=== PATIENT | male | born 1960 ===

== ENCOUNTER 2020-03-13 11:42 | Emergency (ER) | payer MEDICAID ==
[~2020-03-13] VITALS: Ht 172.7 cm; Wt 72.6 kg
[2020-03-13 11:44] VITALS: BP 119/88
== END 2020-03-13 13:01 | disposition home or self-care (01) ==
LOC: ED 12:06
DX: L03.113 Cellulitis of right upper limb (principal); F17.200 Nicotine dependence, unspecified, uncomplicated
CPT/HCPCS: 99283

== ENCOUNTER → 2021-01-13 | Outpatient (CLI) | payer MEDICAID ==
[~2021-01-13] MED LIST: ACET-2065 PO; CHOL10003 PO; THIA100T27 PO
== END | disposition home or self-care (01) ==
LOC: STAR 14:39
PROVIDERS: ATTEND Urology
DX: Z01.818 Encounter for other preprocedural examination (principal); N20.0 Calculus of kidney; R94.31 Abnormal electrocardiogram [ECG] [EKG]
CPT/HCPCS: 93005

== ENCOUNTER 2021-01-17 10:33 | Day surgery (SDC) | payer MEDICAID ==
[~2021-01-17] VITALS: Ht 172.7 cm; Wt 68.2 kg
[2021-01-17 11:18] VITALS: BP 107/69
== END 2021-01-17 14:35 | disposition home or self-care (01) ==
LOC: OUT 10:33
PROVIDERS: ATTEND Urology
DX: N20.1 Calculus of ureter (principal); J44.9 Chronic obstructive pulmonary disease, unspecified; I10 Essential (primary) hypertension; F10.10 Alcohol abuse, uncomplicated; Z79.899 Other long term (current) drug therapy
CPT/HCPCS: 52353; 74420; 82360; 88300; C1769; J0330; J0690; J1100; J2250; J2405; J2704; J3010; J7120; Q9967